=== PATIENT | female | born 1955 | race Hispanic/Latino ===

== ENCOUNTER 2017-05-09 18:24 | Inpatient (IN) | payer BC ==
[~2017-05-09 18:24] MED LIST: ISOVUE-370 76%-LOCM 1 ML ONE
[2017-05-09 19:45] LABS: #Basophils 0.1 thou/uL (0.0-0.2); #Eosinphils 0.1 thou/uL (0.0-0.7); #Lymphocytes 2.1 thou/uL (1.20-3.40); #Monocytes 0.3 thou/uL (0.11-0.59); #Neutrophils 5.3 thou/uL (1.40-6.50); %Basophils 0.8 % (0.0-1.0); %Eosinophils 0.9 % (0.0-10.0); %Lymphocytes 27.1 % (21.0-51.0); Hematocrit 41.1 % (36.0-47.0); Mean Platelet Volume 9.2 fL (7.4-10.4); Red Blood Cell (RBC) Count 4.81 mill/uL (4.20-5.40); White Blood Cell (WBC) Count 7.9 thou/uL (4.8-10.8)
[2017-05-09 19:51] LABS: Prothrombin Time 14.3 SEC (12.0-14.7)
[2017-05-09 19:52] LABS: PTT 41.6 SEC (22.9-36.1)
[2017-05-09] MEDS ORDERED: Labetalol HCl 100 MG/20 ML VIAL ONE (20:01)
[2017-05-09 20:10] LABS: Bilirubin Negative (Negative); Blood, Urine Small (Negative); Glucose, Urine (Dipstick) 100 mg/dL (Negative); Ketone, Urine Negative (Negative); Nitrite Negative (Negative); Protein, Urine (Dipstick) > or equal to 300 mg/dL (Neg-Trace); Urobilinogen 0.2 mg/dL (0.2-1.0)
[2017-05-09 20:11] LABS: ALT (SGPT) 11 U/L (8-55); AST (SGOT) 13 U/L (5-34); Alkaline Phosphatase 118 U/L (40-150); Anion Gap 15 mmol/L (10-20); BUN (Urea Nitrogen) 23 mg/dL (9.8-20.1); Bilirubin, Total 0.3 mg/dL (0.2-1.2); Calc. Creatinine Clearance 0 mL/min (70-130); Calcium 8.5 mg/dL (7.8-10.44); Carbon Dioxide 25 mmol/L (22-29); Chloride 92 mmol/L (98-107); Estimated GFR-MDRD 13; Globulin 4.4 g/dL (2.4-3.5); Magnesium 1.8 mg/dL (1.6-2.6); Protein, Total 7.7 g/dL (6.0-8.3)
[2017-05-09 20:14] LABS: Troponin I 0.035 ng/mL (< 0.028)
[2017-05-09 20:16] LABS: Bacteria/HPF 4+ HPF (None Seen); Hyaline Casts/LPF 4-6 HYALINE CAST LPF (0-3 Hyaline)
--- NOTE | 2017-05-09 20:34 | PDOC.EVN ---
Event Note - Event Note Event Note: [id number] h&p dictated 1. Abdominal pain + R/O Ovarian vein thrombus 2. constipation 3. H/O HTN 4. ESRD 5. H/O DM type 2 PLAN: See orders
[2017-05-09] MEDS ORDERED: cefTRIAXone\\ROCEPHIN 1 GM VIAL ONE (20:47)
[2017-05-09] MEDS ORDERED: cloNIDine HCl 0.1 MG TAB ONE ×2 (20:47→20:48)
[2017-05-09] MEDS ORDERED: Sodium Chloride 0.9% 100 ML ONE (20:48)
[2017-05-09] MEDS ORDERED: Ondansetron HCl/PF 4 MG/2 ML Vial ONE (20:49)
--- NOTE | 2017-05-09 22:07 | CT ---
CTA OF THE CHEST WITH IV CONTRAST UTILIZING PE PROTOCOL CT ABDOMAN AND PELVIS WITH IV CONTRAST: Indication: 61-year-old female presents as an EMS transfer from [facility] with comp laints of a varying vein thrombosis and fluid overload. Patient has been having ongoing abdominal pa in for 15 days with nausea for 3 days. The patient has a history of renal failure and hyponatremia a nd is currently receiving dialysis. Patient has a surgical history of prior and cholecyste ctomy. Comparison: None. FINDINGS: CHEST: No central or segmental pulmonary embolus is present. There is mild cardiomegaly with a moderate sized pericardial effusion. There is prominent of the sona n pulmonary artery, likely indicative of underlying pulmonary artery hypertension. There is a modera te right and small left pleural effusion. There is right basilar atelectasis. There is calcified granuloma within the right lower lobe. There are areas of subsegmental atelectasis within both lower lobes, lingula, right middle lobe and right upper lobe. There is an endovascular stent seen within the left upper extremity. No pathologically enlarged lymph nodes are evident. There are scattered vascular calcifications involving the thoracic and coronary arteries. ABDOMEN\E\PELVIS: No focal hepatic lesion is evident. The gallbladder is surgically absent. The spleen, pancreas, adrenal glands, and kidneys appear within normal limits. There is a small calcific density seen within the region of the right adnexa, nonspecific. The uteru s is somewhat atrophy. The bladder, rectum and perirectal soft tissues are unremarkable. There is a normal appendix in the right lower quadrant. There is a prominent mesentery involving the cecum, lik elidia indicative of a wandering mesentery which is a normal variant. No definite acute osseous abnorma lity is demonstrated. IMPRESSION: 1. No central or segmental pulmonary embolus. 2. Cardiomegaly with bilateral pleural effusions may be indicative of volume overload or mild CHF. 3. Moderate pericardial effusion. 4. No acute abnormality seen within the abdomen or pelvis. POS: [facility]
[2017-05-09] MEDS ORDERED: HYDROcodone/Acetaminophen 5/325 mg Tablet PO PRN (22:12)
[2017-05-09] MEDS ORDERED: Acetaminophen 325 MG TAB PO PRN (22:12)
[2017-05-09] MEDS ORDERED: niCARdipine 20MG In NaCl 20 MG/200 ML BAG ONE (22:17)
[2017-05-09] MEDS ORDERED: Meclizine HCl 25 MG TAB PO PRN (22:18)
[2017-05-09] MEDS ORDERED: traMADol HCl 50 MG TAB PO PRN (22:18)
[2017-05-09] MEDS ORDERED: Dextrose 5% in Water 1,000 ML IV PRN (22:19)
[2017-05-09] MEDS ORDERED: HumaLOG 300 UNITS/3 ML VIAL SC PRN ×2 (22:19)
[2017-05-09] MEDS ORDERED: Dextrose 50% Abboject 50 ML SYRINGE SLOW IVP PRN (22:19)
[2017-05-09 22:54] LABS: Anion Gap 16 mmol/L (10-20); BUN (Urea Nitrogen) 23 mg/dL (9.8-20.1); Calc. Creatinine Clearance 0 mL/min (70-130); Carbon Dioxide 24 mmol/L (22-29); Chloride 91 mmol/L (98-107); Estimated GFR-MDRD 13
[2017-05-10] MEDS ORDERED: niCARdipine HCl 25 MG in Sodium Chloride 0.9% 250 ML 240 ML IVPB SCH (03:15)
[2017-05-10 04:25] LABS: #Eosinphils 0.1 thou/uL (0.0-0.7); #Monocytes 0.4 thou/uL (0.11-0.59); %Basophils 0.6 % (0.0-1.0); %Lymphocytes 30.6 % (21.0-51.0); %Monocytes 6.1 % (0.0-10.0); Hematocrit 36.3 % (36.0-47.0); Mean Platelet Volume 9.8 fL (7.4-10.4); Red Blood Cell (RBC) Count 4.24 mill/uL (4.20-5.40); White Blood Cell (WBC) Count 6.5 thou/uL (4.8-10.8)
[2017-05-10] MEDS: Ondansetron HCl/PF 4 MG/2 ML Vial IVP PRN ×2 (06:26→18:10)
[2017-05-10] MEDS: Levothyroxine Sodium 100 MCG TAB PO SCH (06:36)
--- NOTE | 2017-05-10 07:06 | HP ---
DATE OF ADMISSION: 05/09/2017 CHIEF COMPLAINT: Abdominal pain. HISTORY OF PRESENT ILLNESS: The patient is a 61-year-old female with a past medical history of hypertension, diabetes mellitus type 2, ESRD, hyperlipidemia , hypothyroidism, now came to the ER complaining of nausea and abdominal pain. The patient started having abdominal pain. Abdominal pain is all over the abdomen, cramping kind of pain, moderate in intensity, no aggravating factors, no relieving factors, complaints of nausea also. The patient denies any diarrhea but complains of constipation for the past five days. She complains of some dizziness but denies any palpations, denies syncope. The patient's pain persisted, so she went to outside ER. In the outside ER, the patient was possibly having ovarian thrombus, so the patient was recently transferred here for further evaluation. The patient denies any chest pain at this time. PAST MEDICAL HISTORY: As per HPI. PAST SURGICAL HISTORY: AV fistula cuffed tunnel surgery, cholecystectomy, and C -section. SOCIAL HISTORY: Denies smoking, denies alcohol, and denies any drugs. FAMILY HISTORY: Denies any heart problems. REVIEW OF SYSTEMS: Constitutional: Denies any fever, denies any chills. Eyes: Denies any vision problems. Ears: Denies any hearing loss. Neck: Denies any neck pain. Cardiovascular System: Denies any chest pain, denies any palpitation. Respiratory System: Denies any cough. Denies sputum production. Gastrointestinal: Positive for abdominal pain. Musculoskeletal: Denies any swelling. Cranial Nerve System: Denies syncope. Positive for dizziness. Psychiatric System: Has anxiety. Integumentary: Denies any rash. Genitourinary: On dialysis. PHYSICAL EXAMINATION: VITAL SIGNS: At the time of H and P performed, blood pressure is 170/80, afebrile, respiratory rate 18. GENERAL: The patient appears tired. HEENT: Nose normal. Ears normal. Teeth intact. Tongue is moist. NECK: Supple. No JVD. CARDIOVASCULAR SYSTEM: S1, S2 present. Regular rate and rhythm. No murmurs, no rubs, no gallops. RESPIRATORY SYSTEM: No wheezing, no rhonchi. GENITOURINARY: Denies dysuria. INTEGUMENTARY: Denies any rash. MUSCULOSKELETAL: No joint deformities. Moves all joints. CRANIAL NERVE SYSTEM: Cranial nerves intact. Follows commands. Strength intact, sensory intact. LABORATORY DATA: At the time of H and P performed, sodium 127, potassium 3.3, chloride 93, CO2 of 27, BUN 24, creatinine 3.68. White count 6.7, hemoglobin 12.4, platelet count 218. CT abdomen and pelvis outside done without contrast showed ovarian vein, need to rule out ovarian vein thrombus. ASSESSMENT AND PLAN: The patient is a 61-year-old female. 1. Abdominal pain, rule out ovarian thrombus. Plan is to discuss with ED physician. We will go ahead and do a CT abdomen and pelvis with IV contrast to rule out any thrombus and monitor the patient closely. We will hold off heparin drip until the CT was done. 2. Constipation. Start the patient on MiraLax daily and also on lactulose. We will monitor the patient closely. 3. End-stage renal disease. Plan is to consult Nephrology for hemodialysis in the a.m. because the patient is getting contrast. 3. Dyspnea. Currently on room air satting 97%. CTA was ordered in the ER for rule out pulmonary embolism as the patient was initially hypoxic we will monitor the patient closely. 4. History of hypertension. Continue blood pressure meds. 5. Diabetes mellitus type 2, monitor blood sugars. Will give insulin sliding scale. The case was discussed in detail with the patient. The patient is FULL CODE. MTDD
[2017-05-10] MEDS: SODIUM CHLORIDE IVPB SCH ×2 (08:25→15:45)
[2017-05-10] MEDS: NICARDIPINE HCL IVPB SCH ×2 (08:25→15:45)
[2017-05-10] MEDS: ADMIXTURE FEE IVPB SCH ×2 (08:25→15:45)
[2017-05-10] MEDS: Ferrous Gluconate 324 MG TAB PO SCH (08:26)
[2017-05-10] MEDS: Aspirin 81 mg Enteric Coated Tablet PO SCH (08:26)
[2017-05-10] MEDS: Heparin 5,000 UNITS/ML VIAL SC SCH ×3 (08:26→21:08)
[2017-05-10] MEDS: Famotidine 20 MG TAB PO SCH (08:26)
[2017-05-10] MEDS: Furosemide 80 MG TAB PO SCH ×2 (08:26→08:42)
[2017-05-10] MEDS: Carvedilol 6.25 MG TAB PO SCH ×2 (08:26→21:06)
--- NOTE | 2017-05-10 11:19 | CON ---
DATE OF CONSULTATION: 05/10/2017 HISTORY OF PRESENT ILLNESS: Ms. Vega is a 61-year-old female with end-stage renal dise ase from diabetic nephropathy and admitted for abdominal pain. During the initial evaluation, she w as noted to be volume overloaded as well as having urgent hypertension. She was admitted for furthe r management of this problem. We are now being consulted for emergent hemodialysis. The patient's blood pressure is much improved this morning since she is now on a Cardene drip. Initially blood pr essure at the ER was noted to be having a BP systolic of 220. The patient complaining of severe anxiety. REVIEW OF SYSTEMS: No chest pain, no shortness of breath. Positive for abdominal discomfort. Posi tive for occasional nausea, but no vomiting, no diarrhea, positive constipation, no fever or chills, no diarrhea. Appetite and energy level is decreased. Occasional joint pains. No new skin rash, o ccasional headache, but no diplopia. No sore throat. PAST MEDICAL HISTORY: 1. Hypothyroidism. 2. Hypertension. 3. ESRD. 4. Type 2 diabetes mellitus. 5. History of anxiety. PAST SURGICAL HISTORY: 1. Status post AV fistula placement. 2. Status post cuffed dialysis catheter placement. 3. Status post cholecystectomy. 4. Status post section. 5. Status post AV fistula placement. 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 No IV drug use. Status post blood transfusion. No history of smoking, no al cohol use. ALLERGIES: Unknown. TRAUMA: None. IMMUNIZATIONS: Up to date. HOSPITALIZATIONS: Please see past medical history. FAMILY HISTORY: No family history of ESRD. PHYSICAL EXAMINATION: VITAL SIGNS: Blood pressure 148/54, heart rate 55, respiratory rate 19, pulse ox 94%. GENERAL: Noted to be awake, alert, comfortable, not in overt distress. SKIN: Adequate turgor. HEENT: Slightly pale conjunctivae, anicteric sclerae. NECK: No neck mass, no carotid bruits, no JVD. CHEST: No deformities. LUNGS: Decreased breath sounds. No wheezing, no crackles. HEART: Normal sinus rhythm. No murmur, no gallops or rubs. ABDOMEN: Globular, soft, nontender, no masses. EXTREMITIES: No edema, no deformities. NEUROLOGIC: Awake, oriented to 3 spheres. Moving all extremities. No tremors or asterixis, no christopher obey. Please note this patient is French speaking, does not speak Taiwanese. CT scan of the chest and thorax 05/09/2017 showed no evidence of pulmonary embolism, bilateral pleur al effusions was noted, mild CHF. There is a moderate pericardial effusion. CT scan of the abdomen and pelvis shows no PE and abdomen showed no acute abnormality. LABORATORY: 05/10/2017 - White count 6.5, hemoglobin is 12. Sodium 128, potassium 3.1, chloride 91 , carbon dioxide 24, BUN 23, creatinine 3.59, calcium 8.0. ASSESSMENT AND PLAN: 1. Congestive heart failure - emergent hemodialysis. We will attempt a 3 liter fluid removal with this patient as tolerated. This will be dictated by her blood pressure. 2. Labile/urgent hypertension, much improved with Cardene drip. We will start tapering the Cardene drip. In view of the planned dialysis we will a.m. blood pressure meds. 3. Anxiety. We will give Ativan 0.5 mg tab b.i.d. as needed. Overall, prognosis remains guarded with this patient. Continue current management. I will resume b ack her regular hemodialysis tomorrow on Wednesday, , and Wednesday. Continue supportive care.
--- NOTE | 2017-05-10 14:22 | CON ---
DATE OF CONSULTATION: 05/10/2017 Ms. Vega is a 61-year-old female with end-stage renal disease, followed by Dr. Rizvi. She presented with volume overload, required urgent dialysis today. She has a long history of diabetes. Her son says she has been having abdominal pain prior to admiss ion. He says she has had intermittent abdominal pain for 10 years and has been worked up by a stoma ch specialist without any diagnosis being made. He said she has bowel movements every 4-5 days. She does have a history of anxiety. She also has a history of diabetes and hypertension. She had a systolic blood pressure of 220 when she presented. PAST MEDICAL HISTORY: Remarkable for hypothyroidism, hypertension, diabetes, anxiety vascular acces s procedures, cholecystectomy, . SOCIAL HISTORY: She is a nonsmoker, nondrinker. ALLERGIES: She reports no drug allergies. History is provided via her son. PHYSICAL EXAMINATION: GENERAL: She is in no distress. She is tolerating dialysis. VITAL SIGNS: Blood pressure is 199/80, heart rate 68, respiratory rate 12. HEENT: Pupils are equal. Sclerae is anicteric. NECK: Supple. LUNGS: Remarkable for coarse breath sounds that are equal. HEART: Regular rhythm. ABDOMEN: Soft. CT pulmonary angiogram was done showing a pericardial effusion, right greater than left pleural effu shante and basilar atelectasis as well as calcified granuloma. No pulmonary emboli were seen. IMPRESSION: 1. Hypertensive pulmonary edema leading to the need for urgent dialysis. 2. Abdominal discomfort of unclear etiology. Vascular ischemia is in the differential, although alexis yo has a completely benign abdominal exam. The abdomen CT did not show any intra-abdominal pathology . With her pericardial effusion, echocardiogram should be done, although she clearly does not have escalera ponade physiology. This has already been ordered. I will follow with the other physicians caring for her.
--- NOTE | 2017-05-10 18:06 | PRG ---
DATE OF SERVICE: 05/10/2017 SUBJECTIVE: This patient is doing little better today. No chest pain. Shortness of breath is impr minor. No nausea, no vomiting, no fever. Still on Cardene drip. OBJECTIVE: VITAL SIGNS: The patient's blood pressure is 128/54, heart rate is 55, respirations is 19, pulse ox is 94. GENERAL: Patient is lying in bed, no apparent distress. HEENT: Atraumatic, normocephalic. Pupils equal, round, react to light. Extraocular movements inta ct. Mucous membranes moist. NECK: No JVD. CHEST: Some decreased breath sounds at the bases. No wheezing ,no crackles. HEART: S1, S2 no murmurs or gallops. ABDOMEN: Soft. EXTREMITIES: No cyanosis, clubbing, or edema. Distal pulses present. NEUROLOGICAL: Alert, awake, oriented. No cranial deficits. No sensorimotor deficits. LABORATORY DATA: WBC of 6.5, hemoglobin is 12. Sodium is 128, potassium is 3.1, creatinine is 3.59 . ASSESSMENT AND PLAN: 1. Hypertensive urgency giving rise to volume overload and pulmonary edema, needing urgent hemodial ysis. Patient will consult Dr. Rizvi and do the need for. 2. Labile hypertension, on Cardene drip, we will taper that. 3. Pericardial effusion, we will follow echocardiogram. 4. Hypothyroidism, stable. 5. End-stage renal disease. Follow renal planned diabetes, on insulin sliding scale. 6. Pleural effusions. We will monitor that in this hospital stay. 7. Sequential compression devices for deep venous thrombosis prophylaxis. I will work with the [facility] and further caring for the patient.
[2017-05-10] MEDS ORDERED: Non-Formulary Item 1 EACH (Insulin Glargine,Hum.Rec.Anlog 20 UNIT) SQ SCH (21:00)
[2017-05-10] MEDS ORDERED: cloNIDine HCl 0.1 MG TAB PO SCH (21:00)
[2017-05-10] MEDS: Atorvastatin Calcium 20 MG TAB PO SCH (21:06)
[2017-05-10] MEDS: cefTRIAXone\\ROCEPHIN 1 GM in Sodium Chloride 0.9% 100 ML IVPB SCH (21:07)
[2017-05-10] MEDS: Insulin Detemir 100 UNITS/ML 20 UNITS in Pre-Filled Syringe 1 EACH SC SCH (21:08)
[2017-05-11] MEDS: SODIUM CHLORIDE IVPB SCH (02:09)
[2017-05-11] MEDS: ADMIXTURE FEE IVPB SCH (02:09)
[2017-05-11] MEDS: NICARDIPINE HCL IVPB SCH (02:09)
[2017-05-11] MEDS: Ondansetron HCl/PF 4 MG/2 ML Vial IVP PRN ×2 (04:07→19:44)
[2017-05-11 04:30] VITALS: BMI 34.9
[2017-05-11 06:02] LABS: #Basophils 0.1 thou/uL (0.0-0.2); #Eosinphils 0.2 thou/uL (0.0-0.7); #Lymphocytes 1.9 thou/uL (1.20-3.40); #Monocytes 0.5 thou/uL (0.11-0.59); #Neutrophils 4.7 thou/uL (1.40-6.50); %Basophils 1.1 % (0.0-1.0); %Eosinophils 2.3 % (0.0-10.0); %Lymphocytes 25.5 % (21.0-51.0); %Monocytes 7.1 % (0.0-10.0); Hematocrit 40.6 % (36.0-47.0); Mean Platelet Volume 9.5 fL (7.4-10.4); Red Blood Cell (RBC) Count 4.68 mill/uL (4.20-5.40); White Blood Cell (WBC) Count 7.3 thou/uL (4.8-10.8)
[2017-05-11 06:24] LABS: Anion Gap 17 mmol/L (10-20); BUN (Urea Nitrogen) 11 mg/dL (9.8-20.1); BUN/Creatinine Ratio 3.45; Calc. Creatinine Clearance 22 mL/min (70-130); Calcium 8.4 mg/dL (7.8-10.44); Carbon Dioxide 23 mmol/L (22-29); Chloride 94 mmol/L (98-107); Estimated GFR-MDRD 15; Phosphorus 3.6 mg/dL (2.3-4.7)
[2017-05-11] MEDS: Levothyroxine Sodium 100 MCG TAB PO SCH (06:38)
--- NOTE | 2017-05-11 08:54 | PRG ---
DATE OF SERVICE: 05/11/2017 SUBJECTIVE: Ms. Vega is a 61-year-old female with ESRD being followed by the [facility] for her maintenance hemodialysis. She came in with some shortness of breath and abdominal pain . A CT of the chest showed moderate sized pericardial effusion. We are currently maxing out fluid removal. I am currently at the bedside supervising her dialysis. [facility] to max out fluid removal and to improve the pericardial effu shante. A cardiac echo is now being scheduled with this patient. She voices no new complaints. Her shortness of breath is much improved. PHYSICAL EXAMINATION: VITAL SIGNS: Blood pressure is 140/51, heart rate 44, respiratory rate 115, pulse ox 93%. GENERAL: Awake, alert, comfortable, not in distress. SKIN: Adequate turgor. HEENT: Pinkish conjunctivae, anicteric sclerae. NECK: No neck mass, no carotid bruits, no JVD. CHEST: No deformities. LUNGS: Clear breath sounds. No wheezing, no crackles. HEART: Normal sinus rhythm. No murmur, no gallops or rubs. ABDOMEN: Globular, soft, nontender, no masses. EXTREMITIES: No edema. MEDICATIONS: 05/11/2017 - Reviewed. LABORATORY: 05/11/2017 - White count 7.3, hemoglobin 12.6. Sodium 131, potassium 3.3, chloride 94, carbon dioxide 23, BUN 11, creatinine 3.19, glucose 120, calcium 8.4, phosphorus 3.6, albumin 3.0. ASSESSMENT AND PLAN: 1. End-stage renal disease stable, doing daily dialysis due to the moderate sized pericardial effus ion. I have discussed the case with the dialysis nurse. We will again schedule her for another huang lysis treatment today. Attempting 3 liters of fluid removal today. We removed 4 liters yesterday. 2. Labile hypertension, still on Cardene drip. Consider adding p.o. blood pressure medication with this patient. We will start her on losartan 50 mg tab daily. 3. Anemia. No indication for any Epogen treatment. 4. Pericardial effusion, maxing out fluid removal with dialysis with cardiac echo scheduled. 5. Abdominal pain, consult GI.
[2017-05-11] MEDS: Heparin 5,000 UNITS/ML VIAL SC SCH ×3 (11:03→21:20)
[2017-05-11] MEDS: Famotidine 20 MG TAB PO SCH (11:03)
--- NOTE | 2017-05-11 11:40 | PDOC.PN ---
- Subjective Encounter Start Date: 05/11/17 Encounter Start Time: 11:39 c/o nausea, abd pain no f/c no cp - Objective MAR Reviewed: Yes Vital Signs & Weight: Vital Signs (12 hours) Temp 05/11/17 04:00 98.7 F 05/11/17 00:00 98.2 F Weight Admit Weight 175 lb Weight 166 lb 3.657 oz Most Recent Monitor Data Heart Rate from ECG 43 NIBP 140/51 NIBP BP-Mean 103 Respiration from ECG 15 SpO2 93 I&O: 05/10/17 05/11/17 05/12/17 06:59 06:59 06:59 Intake Total 480 1044.5 Output Total 300 120 Balance 180 924.5 Result Diagrams: 05/11/17 03:51 05/11/17 03:51 Additional Labs: Accuchecks 05/11/17 05/11/17 05/11/17 09:55 09:29 06:37 POC Glucose 95 66 L 122 H 05/11/17 05/11/17 05/10/17 03:29 02:56 21:10 POC Glucose 111 H 52 L* 163 H 05/10/17 05/10/17 17:58 13:07 POC Glucose 134 H 97 Phys Exam - Physical Examination Constitutional: NAD HEENT: PERRLA Neck: no JVD decreased bs at bases Cardiovascular: no significant murmur Gastrointestinal: non-tender Musculoskeletal: pulses present Neurological: moves all 4 limbs Psychiatric: A&O x 3 Dx/Plan (1) Hypertensive emergency Code(s): I16.1 - HYPERTENSIVE EMERGENCY Status: Acute (2) Pulmonary edema Code(s): J81.1 - CHRONIC PULMONARY EDEMA Status: Acute (3) Abdominal pain Code(s): R10.9 - UNSPECIFIED ABDOMINAL PAIN Status: Acute (4) ESRD (end stage renal disease) Code(s): N18.6 - END STAGE RENAL DISEASE Status: Acute (5) Diabetes mellitus Code(s): E11.9 - TYPE 2 DIABETES MELLITUS WITHOUT COMPLICATIONS Status: Acute (6) Pericardial effusion Code(s): I31.3 - PERICARDIAL EFFUSION (NONINFLAMMATORY) Status: Acute (7) Pleural effusion Code(s): J90 - PLEURAL EFFUSION, NOT ELSEWHERE CLASSIFIED Status: Acute - Plan * . cont shelton sam got hd today gi consult for abd pain f/u dr felisha shrestha
[2017-05-11] MEDS ORDERED: Carvedilol 25 MG TAB PO SCH ×2 (12:00→17:00)
[2017-05-11] MEDS ORDERED: cloNIDine HCl 0.1 MG TAB PO SCH ×2 (12:00→15:00)
[2017-05-11] MEDS: Aspirin 81 mg Enteric Coated Tablet PO SCH (12:05)
[2017-05-11] MEDS: Ferrous Gluconate 324 MG TAB PO SCH (12:06)
[2017-05-11] MEDS: cloNIDine HCl 0.1 MG TAB PO SCH ×2 (15:47→21:19)
[2017-05-11] MEDS: Carvedilol 25 MG TAB PO SCH (15:48)
--- NOTE | 2017-05-11 19:25 | PRG ---
DATE OF SERVICE: 05/11/2017 SUBJECTIVE: Ms. Vega continues to complain of abdominal discomfort. She also has had some naus ea. OBJECTIVE: VITAL SIGNS: Blood pressure 160/53, heart rate in the 50s, respiratory rate in the teens. Adjusted her hypertension medications today and her blood pressure this afternoon is better controlled. She was on a Cardene drip still this morning. LUNGS: Clear. HEART: Regular rhythm. ABDOMEN: Soft. IMPRESSION: 1. Hypertensive pulmonary edema. 2. Diabetes. 3. Abdominal discomfort. PLAN: She tells me she has had extensive workup after 10 years of discomfort, but I would still won bony about mesenteric vascular disease with diabetic gastroparesis, Gastroenterology has been consult ed, this is her primary complaint come in to the hospital. Her hypertensive pulmonary edema appears to have resolved clinically. She did have a pericardial effusion. An echocardiogram was ordered but I do not see any results yet . She clinically is not tamponading.
[2017-05-11] MEDS: cefTRIAXone\\ROCEPHIN 1 GM in Sodium Chloride 0.9% 100 ML IVPB SCH (21:17)
[2017-05-11] MEDS: Gabapentin 300 MG CAP PO SCH (21:20)
[2017-05-11] MEDS: Insulin Detemir 100 UNITS/ML 20 UNITS in Pre-Filled Syringe 1 EACH SC SCH (21:20)
[2017-05-11] MEDS: Atorvastatin Calcium 20 MG TAB PO SCH (21:20)
[2017-05-11] MEDS: Polyethylene Glycol 3350 17 GM Packet PO SCH (21:21)
--- NOTE | 2017-05-12 00:30 | CON ---
DATE OF CONSULTATION: 05/11/2017 REASON FOR CONSULTATION: Epigastric pain and nausea. HISTORY OF PRESENT ILLNESS: Ms. Vega is a 61-year-old female with past medical history of hyper tension, diabetes, end-stage renal disease, came to the emergency room complaining of nausea and abd ominal pain. She had been constipated for about 8 days now. The patient's daughter states her pain has come and gone in the past over about past 5 years. She complains of epigastric pain and abdomi nal pain in the upper abdomen in the epigastrium. Apparently, she went to an outside emergency room first, and there, she was found to have an ovarian vein thrombosis and was transferred here. She h ad a normal CBC, normal comp metabolic profile except for an albumin of 3. I do not see her lipase was obtained, possibly that was done in the outside facility. She had a CAT scan of the abdomen and pelvis here on 05/09/2017, showed cardiomegaly, bilateral effusions, moderate pericardial effusion, no pulmonary embolus. The abdomen showed quite a bit of stool in the colon. PAST MEDICAL HISTORY: Notable for type 2 diabetes, end-stage renal disease on dialysis, hypothyroid ism, hypertension, history of anxiety. PAST SURGICAL HISTORY: AV fistula placement, cuffed dialysis placement, previous cholecystectomy, c esarean section. SOCIAL HISTORY: The patient lives in [place], [place]. She is , several children. She does n ot speak Irish, her daughter is here translating for her. She denies any IV drug use, alcohol or tobacco use. ALLERGIES: Unknown. TRAUMA: None. HOSPITAL COURSE: So far she has been seen by Nephrology and ICU. She is on a Cardene drip for hype rtensive urgency, fluid overload. She was dialyzed, not improved, now her stomach pain is better, s he is still somewhat nauseated. PRESENT MEDICATIONS: Tylenol, Norvasc, Lipitor, Rocephin, iron, gabapentin, glucagon, heparin. She is on Cardene drip, which she is off now. Atorvastatin, aspirin 81 mg a day, Pepcid, losartan, Syn throid, lactulose and MiraLax. PHYSICAL EXAMINATION: VITAL SIGNS: Blood pressure 160/53. LUNGS: Clear. CARDIAC: Heart regular, without clicks or murmurs. ABDOMEN: Soft, nontender, without palpable hepatosplenomegaly. There is no rebound. There is no g uarding. There is no shifting dullness or fluid wave. EXTREMITIES: No clubbing, cyanosis or edema. ASSESSMENT AND PLAN: Nausea and vomiting. This may be related to constipation. It may be related to her hypertensive crisis and fluid overload. With symptoms on and off for several years and a vag ue history, we will proceed with EGD tomorrow.
[2017-05-12] MEDS ORDERED: Dextrose 5 % And 0.9 % NaCl 1,000 ML IV SCH (03:30)
[2017-05-12 05:06] LABS: #Basophils 0.1 thou/uL (0.0-0.2); #Eosinphils 0.2 thou/uL (0.0-0.7); #Lymphocytes 2.4 thou/uL (1.20-3.40); #Monocytes 0.5 thou/uL (0.11-0.59); #Neutrophils 4.1 thou/uL (1.40-6.50); %Eosinophils 2.9 % (0.0-10.0); %Lymphocytes 32.5 % (21.0-51.0); %Monocytes 7.1 % (0.0-10.0); Hematocrit 39.6 % (36.0-47.0); Mean Platelet Volume 9.4 fL (7.4-10.4); White Blood Cell (WBC) Count 7.2 thou/uL (4.8-10.8)
[2017-05-12 05:29] LABS: Anion Gap 15 mmol/L (10-20); BUN (Urea Nitrogen) 7 mg/dL (9.8-20.1); BUN/Creatinine Ratio 2.46; Calc. Creatinine Clearance 25 mL/min (70-130); Calcium 8.4 mg/dL (7.8-10.44); Carbon Dioxide 23 mmol/L (22-29); Chloride 96 mmol/L (98-107); Estimated GFR-MDRD 17; Phosphorus 3.2 mg/dL (2.3-4.7)
[2017-05-12] MEDS: Levothyroxine Sodium 100 MCG TAB PO SCH (06:37)
[2017-05-12] MEDS: cloNIDine HCl 0.1 MG TAB PO SCH ×3 (08:46→20:17)
--- NOTE | 2017-05-12 09:06 | PRG ---
DATE OF SERVICE: 05/12/2017 RENAL MEDICINE SUBJECTIVE: Ms. Vega is undergoing hemodialysis today. She is receiving daily dialysis due to her moderate sized pericardial effusion. I am at the bedside and supervising her dialysis. She see ms to be tolerating the dialysis. PHYSICAL EXAMINATION: VITAL SIGNS: Blood pressure 170/70, heart rate 70. GENERAL: Noted to be awake, supine, comfortable, and not in distress. SKIN: Adequate turgor. HEENT: Pinkish conjunctivae, anicteric sclerae. LUNGS: No neck mass. No carotid bruits, no JVD. CHEST: No deformities. LUNGS: Clear breath sounds. No wheezing, no crackles. HEART: Normal sinus rhythm. No murmur, no gallops or rubs. ABDOMEN: Globular, soft, nontender, no masses. Positive for bowel sounds. EXTREMITIES: No edema, no deformities. MEDICATIONS: Medications of 05/12/2017 was reviewed. LABORATORY DATA: Laboratories of 05/12/2017; white count 7.2, hemoglobin 12.8. Sodium 130, potassi um 3.7, chloride 96, carbon dioxide 23, BUN 7, creatinine 2.84, glucose 66, calcium 8.4, phosphorus 3.2, and albumin 2.9. ASSESSMENT AND PLAN: 1. End-stage renal disease, stable, receiving daily dialysis due to the moderate size pericardial e ffusion. Attempting to max out fluid removal as tolerated by the patient. We will resume her back on her Wednesday, , and Wednesday dialysis in a.m. 2. Labile hypertension - continue current blood pressure meds. Blood pressure medications have bee n adjusted. Currently, patient started back on losartan at 100 mg tablet once a day. She is also c urrently on carvedilol and amlodipine. We will not resume the minoxidil due to the pericardial effu shante. 3. Chronic abdominal pain - GI has been consulted. There is a planned upper GI endoscopy with this patient. Overall, agree with current management.
--- NOTE | 2017-05-12 12:05 | PDOC.PN ---
- Subjective Encounter Start Date: 05/12/17 Encounter Start Time: 12:03 still c/o abd pain getting hd today no f/c - Objective MAR Reviewed: Yes Vital Signs & Weight: Vital Signs (12 hours) Temp Pulse Resp BP Pulse Ox 05/12/17 08:48 51 L 173/61 H 05/12/17 08:46 180/59 H 05/12/17 08:00 98.9 F 51 L 18 96 05/12/17 07:00 98.9 F 05/12/17 04:00 98.8 F Weight Admit Weight 175 lb Weight 166 lb 3.657 oz Most Recent Monitor Data Heart Rate from ECG 48 NIBP 139/53 NIBP BP-Mean 90 Respiration from ECG 17 SpO2 98 I&O: 05/11/17 05/12/17 05/13/17 06:59 06:59 06:59 Intake Total 1044.5 630 0 Output Total 120 40 0 Balance 924.5 590 0 Result Diagrams: 05/12/17 04:08 05/12/17 04:08 Additional Labs: Accuchecks 05/12/17 05/12/17 05/11/17 06:12 03:06 20:50 POC Glucose 81 66 L 92 05/11/17 05/11/17 05/11/17 16:25 15:49 12:09 POC Glucose 77 67 L 86 Phys Exam - Physical Examination Constitutional: NAD HEENT: PERRLA Neck: no JVD Respiratory: no wheezing Cardiovascular: no significant murmur Gastrointestinal: soft, positive bowel sounds Musculoskeletal: pulses present Neurological: moves all 4 limbs Psychiatric: A&O x 3 Dx/Plan (1) Hypertensive emergency Code(s): I16.1 - HYPERTENSIVE EMERGENCY Status: Acute (2) Pulmonary edema Code(s): J81.1 - CHRONIC PULMONARY EDEMA Status: Acute (3) Abdominal pain Code(s): R10.9 - UNSPECIFIED ABDOMINAL PAIN Status: Acute (4) ESRD (end stage renal disease) Code(s): N18.6 - END STAGE RENAL DISEASE Status: Acute (5) Diabetes mellitus Code(s): E11.9 - TYPE 2 DIABETES MELLITUS WITHOUT COMPLICATIONS Status: Acute (6) Pericardial effusion Code(s): I31.3 - PERICARDIAL EFFUSION (NONINFLAMMATORY) Status: Acute (7) Pleural effusion Code(s): J90 - PLEURAL EFFUSION, NOT ELSEWHERE CLASSIFIED Status: Acute (8) Nausea & vomiting Code(s): R11.2 - NAUSEA WITH VOMITING, UNSPECIFIED Status: Acute - Plan * . cont current mx f/u renal and gi plan
--- NOTE | 2017-05-12 13:27 | PRG ---
DATE OF SERVICE: 05/12/2017 SUBJECTIVE: Ms. Vega did well overnight. Her abdomen is bothering her as much. She is schedul ed for endoscopy today. OBJECTIVE: VITAL SIGNS: Her blood pressure 139/53, heart rate is 48, respiratory rate in the teens. LUNGS: Clear anteriorly. HEART: Regular rhythm. ABDOMEN: Soft. LABORATORY DATA: White count 7.2, hemoglobin 12.8, platelets 205,000. Sodium 130, potassium 3.7, chloride 96, bicarb 23, BUN 7, creatinine 2.8. IMPRESSION: 1. Volume overload, tolerating daily dialysis. 2. Abdominal discomfort. She is scheduled for endoscopy. She says she has had this for 10 years. She does have a history of chronic constipation. I have asked her son to be sure she is on MiraLax every day when she leaves. Gastroenterology's helping us with this. She is a candidate to move out of the Critical Care Unit to the medical bed.
[2017-05-12] MEDS ORDERED: Propofol 200 MG/20 ML VIAL ONE (16:11)
[2017-05-12] MEDS ORDERED: Ondansetron HCl/PF 4 MG/2 ML Vial IVP PRN (16:29)
[2017-05-12] MEDS ORDERED: Morphine Sulfate 2 MG/ML SYRINGE SLOW IVP PRN (16:29)
[2017-05-12] MEDS ORDERED: Promethazine HCl 25 MG/ML VIAL SLOW IVP PRN (16:29)
--- NOTE | 2017-05-12 17:06 | OP ---
DATE OF PROCEDURE: 05/12/2017 GI ENDOSCOPY NOTE SURGEON: Osito Buck M.D. GIRL FRIDAY SURGEON: None. PROCEDURE: Esophagogastroduodenoscopy with biopsies. INDICATION: Chronic epigastric pain. MEDICATIONS: See anesthesia record. FINDINGS: After discussion of the risks, benefits and alternatives of the procedure, informed conse nt was obtained and witnessed. Pre-endoscopic cardiopulmonary examination was satisfactory. Timeou t was performed before sedation was achieved. Sedation was achieved with anesthesia assistance [facility]. A Pentax adult upper endoscope was placed into the oropharynx and passed through the cricopharyngeus under direct visualization. The esophageal mucosa appeared normal throughout w ith an irregular, but normal-appearing Z-line at 37 cm from the incisors. The endoscope was then ad vanced into the stomach. Forward and retroflexed views of the entire gastric mucosa were obtained. In the gastric body, there is a patchy area of friability and erythema with no erosions, no ulcerat ions noted. Biopsies were obtained from the gastric antrum and body to rule out H. pylori infection . The endoscope was then advanced into the duodenum through a normal appearing pylorus and into the first and second portions of the duodenum which appeared normal. The upper endoscope was then comp letely withdrawn and the patient allowed to recover. The patient tolerated the procedure well. The re were no immediate post-procedure complications. IMPRESSION: 1. Nonerosive gastritis, gastric body. Biopsies obtained to rule out Helicobacter pylori. 2. Otherwise, normal esophagogastroduodenoscopy. RECOMMENDATIONS: 1. Daily PPI. 2. Follow up results of the gastric biopsies. 3. Advance diet. Please call back with questions or concerns.
[2017-05-12] MEDS: Carvedilol 25 MG TAB PO SCH ×2 (17:41→17:44)
[2017-05-12] MEDS: Aspirin 81 mg Enteric Coated Tablet PO SCH (17:41)
[2017-05-12] MEDS: Heparin 5,000 UNITS/ML VIAL SC SCH ×2 (17:42→20:17)
[2017-05-12] MEDS: Famotidine 20 MG TAB PO SCH (17:42)
[2017-05-12] MEDS: Losartan Potassium 25 MG TAB PO SCH (17:42)
[2017-05-12] MEDS: Fish Oil 1,000 MG CAP PO SCH (17:42)
[2017-05-12] MEDS: Polyethylene Glycol 3350 17 GM Packet PO SCH ×2 (17:43→20:17)
[2017-05-12] MEDS: Gabapentin 300 MG CAP PO SCH (20:16)
[2017-05-12] MEDS: cefTRIAXone\\ROCEPHIN 1 GM in Sodium Chloride 0.9% 100 ML IVPB SCH (20:17)
[2017-05-12] MEDS: Atorvastatin Calcium 20 MG TAB PO SCH (20:17)
[2017-05-13] MEDS: Levothyroxine Sodium 100 MCG TAB PO SCH (04:41)
--- NOTE | 2017-05-13 08:37 | PRG ---
DATE OF SERVICE: 05/13/2017 RENAL MEDICINE SUBJECTIVE: Ms. Bruce is a 61-year-old female, being followed by the [facility] for her ESRD. Currently, she is on hemodialysis. I am at the bedside supervising her dialysis. Please note she had an incidental finding of moderate size pericardial effusion. For that reason, she has been undergoing daily dialysis. Again, fluid removal only as tolerated. The patient voices no new complaints. Denies any chest pain or shortness of breath. PHYSICAL EXAMINATION: VITAL SIGNS: Blood pressure 170/76, heart rate 52, respiratory rate 20, temperature 98.6, and pulse ox 97%. GENERAL: Noted to be awake, supine, comfortable, not in distress. SKIN: Adequate turgor. HEENT: Pinkish conjunctivae, anicteric sclerae. NECK: No neck mass, no carotid bruits, no JVD. CHEST: No deformities. LUNGS: Clear breath sounds. No wheezing and no crackles heard. HEART: Normal sinus rhythm. No murmur, no gallops or rubs. ABDOMEN: Globular, soft, nontender. EXTREMITIES: No edema, no deformities. MEDICATIONS: Medications of 05/13/2017 was reviewed. LABORATORY DATA: Laboratories of 05/12/2017; sodium 130, potassium 3.7, chloride 96, carbon dioxide 23, BUN 7, creatinine 2.84, glucose 66, calcium 8.4, phosphorus 3.2. White count 7.2, hemoglobin 12.8. ASSESSMENT AND PLAN: 1. End-stage renal disease, stable. Tolerating current hemodialysis. Daily dialysis was done to m ax out fluid removal, so we can improve the pericardial effusion which was found on CT scan. Please note that the patient underwent a cardiac echo on 05/12/2017. Findings of the echo showed ejection fraction of 60%-65%. 2. Abdominal pain. The patient has been evaluated by GI. She underwent an upper GI endoscopy with Dr. Osito Buck. The findings showed nonerosive gastritis on the gastric body. Biopsies were done. Otherwise, the upper GI endoscopy was said to be normal. 3. Hypertension. Continue current blood pressure medications. 4. Recheck basic metabolic panel and CBC in a.m.
[2017-05-13] MEDS: Fish Oil 1,000 MG CAP PO SCH (11:24)
[2017-05-13] MEDS: cloNIDine HCl 0.1 MG TAB PO SCH ×3 (11:24→20:19)
[2017-05-13] MEDS: Aspirin 81 mg Enteric Coated Tablet PO SCH (11:24)
[2017-05-13] MEDS: Losartan Potassium 25 MG TAB PO SCH (11:24)
[2017-05-13] MEDS: Famotidine 20 MG TAB PO SCH (11:24)
[2017-05-13] MEDS: Heparin 5,000 UNITS/ML VIAL SC SCH ×3 (11:24→20:19)
[2017-05-13] MEDS: Carvedilol 25 MG TAB PO SCH ×2 (11:25→16:54)
[2017-05-13] MEDS: Polyethylene Glycol 3350 17 GM Packet PO SCH ×2 (11:31→20:20)
--- NOTE | 2017-05-13 15:56 | PDOC.PN ---
- Subjective Encounter Start Date: 05/13/17 Encounter Start Time: 11:20 Subjective: c/o chest pain post HD session today -: no palp or sob - Objective MAR Reviewed: Yes Vital Signs & Weight: Vital Signs (12 hours) Temp Pulse Resp BP Pulse Ox 05/13/17 14:53 170/76 H 05/13/17 11:25 52 L 05/13/17 11:24 179/71 H 05/13/17 08:00 98.6 F 52 L 20 97 Weight Admit Weight 175 lb Weight 166 lb 3.657 oz Most Recent Monitor Data Heart Rate from ECG 49 NIBP 162/51 NIBP BP-Mean 116 Respiration from ECG 17 SpO2 97 I&O: 05/12/17 05/13/17 05/14/17 06:59 06:59 06:59 Intake Total 630 1332 240 Output Total 40 30 Balance 590 1302 240 Result Diagrams: 05/12/17 04:08 05/12/17 04:08 Additional Labs: Accuchecks 05/13/17 05/13/17 05/13/17 11:56 04:34 00:42 POC Glucose 119 H 142 H 101 05/12/17 19:41 POC Glucose 248 H Phys Exam - Physical Examination HEENT: PERRLA, moist MMs Neck: no JVD, supple Respiratory: no wheezing, no rales Cardiovascular: RRR, no significant murmur Gastrointestinal: soft, non-tender, positive bowel sounds Musculoskeletal: no edema, pulses present Neurological: non-focal, moves all 4 limbs Psychiatric: A&O x 3 Dx/Plan (1) Chest pain Code(s): R07.9 - CHEST PAIN, UNSPECIFIED Status: Acute Qualifiers: Chest pain type: unspecified Qualified Code(s): R07.9 - Chest pain, unspecified (2) PUD (peptic ulcer disease) Code(s): K27.9 - PEPTIC ULC, SITE UNSP, UNSP AC OR CHR, W/O HEMOR OR PERF Status: Chronic (3) Diabetes mellitus Code(s): E11.9 - TYPE 2 DIABETES MELLITUS WITHOUT COMPLICATIONS Status: Chronic Qualifiers: Diabetes mellitus type: type 2 Diabetes mellitus complication status: with kidney complications Diabetes mellitus complication detail: with chronic kidney disease Diabetes mellitus long term care administrator insulin use: with long term care administrator use Chronic kidney disease stage: on chronic dialysis Qualified Code(s): E11.22 - Type 2 diabetes mellitus with diabetic chronic kidney disease; N18.6 - End stage renal disease; Z79.4 - long term care administrator (current) use of insulin; Z99.2 - Dependence on renal dialysis (4) ESRD (end stage renal disease) Code(s): N18.6 - END STAGE RENAL DISEASE Status: Chronic (5) Hypertensive emergency Code(s): I16.1 - HYPERTENSIVE EMERGENCY Status: Resolved (6) Hypothyroidism Code(s): E03.9 - HYPOTHYROIDISM, UNSPECIFIED Status: Chronic Qualifiers: Hypothyroidism type: unspecified Qualified Code(s): E03.9 - Hypothyroidism , unspecified - Plan she does not recall if she had a stress test -: will order nuclear stress test, is on asp, lipitor and coreg -: echo shows good ef with no wall motion abnormalities -: d/w family and pt at bedside -: will get old records from [facility] in [place] * . Review of Systems - Medications/Allergies Allergies/Adverse Reactions: Allergies Allergy/AdvReac Type Severity Reaction Status Date / Time NSAIDS (Non-Steroidal Allergy Verified 03/03/16 12:16 Anti-Inflamma Medications: Current Medications Acetaminophen (Tylenol) 650 mg PO Q4H PRN PRN Reason: Headache/Fever or Pain Hydrocodone Bitart/Acetaminophen ([place] 5/325) 1 tab PO Q4H PRN PRN Reason: Moderate Pain (4-6) Last Admin: 05/12/17 08:47 Dose: 1 tab Amlodipine Besylate (Norvasc) 10 mg PO DAILY [facility] Last Admin: 05/13/17 11:25 Dose: 10 mg Aspirin (Ecotrin) 81 mg PO DAILY [facility] Last Admin: 05/13/17 11:24 Dose: 81 mg Atorvastatin Calcium (Lipitor) 20 mg PO HS [facility] Last Admin: 05/12/17 20:17 Dose: 20 mg Carvedilol (Coreg) 25 mg PO BID-WM [facility] Last Admin: 05/13/17 11:25 Dose: 25 mg Clonidine HCl (Catapres) 0.1 mg PO TID [facility] Last Admin: 05/13/17 14:53 Dose: 0.1 mg Dextrose/Water (Dextrose 50%) 25 gm SLOW IVP PRN PRN PRN Reason: Hypoglycemia Famotidine (Pepcid) 20 mg PO DAILY [facility] Last Admin: 05/13/17 11:24 Dose: 20 mg Fish Oil (Fish Oil) 1,000 mg PO DAILY [facility] Last Admin: 05/13/17 11:24 Dose: 1,000 mg Gabapentin (Neurontin) 600 mg PO 2100 [facility] Last Admin: 05/12/17 20:16 Dose: 600 mg Glucagon (Glucagon) 1 mg IM PRN PRN PRN Reason: Hypoglycemia Heparin Sodium (Porcine) (Heparin) 5,000 units SC TID [facility] Last Admin: 05/13/17 14:53 Dose: 5,000 units Dextrose/Water (D5w) 1,000 mls @ 0 mls/hr IV .Q0M PRN; As Directed PRN Reason: Hypoglycemia Ceftriaxone Sodium 1 gm/ (Sodium Chloride) 100 mls @ 200 mls/hr IVPB Q24HR [facility] Last Admin: 05/12/17 20:17 Dose: 100 mls Nicardipine HCl 50 mg/Miscellaneous Medication 1 each/ Sodium Chloride 250 mls @ 0 mls/hr IVPB INF [facility]; Titrate PRN Reason: Protocol Last Admin: 05/11/17 02:09 Dose: 250 mls Insulin Human Lispro (Humalog) 0 units SC .MODERATE SLIDING SC PRN PRN Reason: Moderate Correctional Scale Insulin Human Lispro (Humalog) 0 units SC .BEDTIME SLIDING SC PRN PRN Reason: Bedtime Correctional Scale Last Admin: 05/12/17 20:24 Dose: 2 units Levothyroxine Sodium (Synthroid) 200 mcg PO 0600 [facility] Last Admin: 05/13/17 04:41 Dose: 200 mcg Losartan Potassium (Cozaar) 100 mg PO DAILY [facility] Last Admin: 05/13/17 11:24 Dose: 100 mg Meclizine HCl (Antivert) 25 mg PO DAILYPRN PRN PRN Reason: Nausea Ondansetron HCl (Zofran) 4 mg IVP Q6H PRN PRN Reason: Nausea/Vomiting Last Admin: 05/11/17 19:44 Dose: 4 mg Pantoprazole Sodium (Protonix) 40 mg PO DAILYPRN PRN PRN Reason: reflux Polyethylene Glycol (Miralax) 17 gm PO BID [facility] Last Admin: 05/13/17 11:31 Dose: 17 gm Promethazine HCl (Phenergan) 12.5 mg PO Q6H PRN PRN Reason: Nausea Sodium Chloride (Flush - Normal Saline) 10 ml IVF Q12HR [facility] Last Admin: 05/13/17 11:31 Dose: 10 ml Sodium Chloride (Flush - Normal Saline) 10 ml IVF PRN PRN PRN Reason: Saline Flush Tramadol HCl (Ultram) 50 mg PO QIDPRN PRN PRN Reason: Pain Last Admin: 05/10/17 15:42 Dose: 50 mg
--- NOTE | 2017-05-13 17:23 | PRG ---
DATE OF SERVICE: 05/13/2017 SUBJECTIVE: Ms. Vega is without complaints. She does state, however, she had some chest pain o n dialysis and that was in the epigastrium. She has no nausea or vomiting. PHYSICAL EXAMINATION: VITAL SIGNS: Heart rate is 52, blood pressure is 139/71, temperature 97. LUNGS: Clear. HEART: Regular. ABDOMEN: Nontender. ASSESSMENT AND PLAN: Epigastric pain of unclear etiology. Normal CMP yesterday. CBC except for BU N and creatinine of 7 and 2.8. I have discussed with patient's hospitalist. She is going to have e valuation for chest pain with stress test. The patient is unsure if she has had that before. At th is time, I see no GI tract etiology of upper GI symptoms, vague nausea on presentation, it may be re lated to her heart failure or hypertension related to fluid overload. Esophagogastroduodenoscopy is normal and CT scan of the upper abdomen was negative. We will follow up gastric biopsies.
[2017-05-13] MEDS: Carvedilol 6.25 MG TAB PO SCH (19:02)
[2017-05-13] MEDS: Atorvastatin Calcium 20 MG TAB PO SCH (20:19)
[2017-05-13] MEDS: cefTRIAXone\\ROCEPHIN 1 GM in Sodium Chloride 0.9% 100 ML IVPB SCH (20:19)
[2017-05-13] MEDS: Gabapentin 300 MG CAP PO SCH (20:19)
[2017-05-14 04:37] LABS: #Basophils 0.1 thou/uL (0.0-0.2); #Eosinphils 0.3 thou/uL (0.0-0.7); #Lymphocytes 2.6 thou/uL (1.20-3.40); #Monocytes 0.6 thou/uL (0.11-0.59); #Neutrophils 5.4 thou/uL (1.40-6.50); %Basophils 0.9 % (0.0-1.0); %Eosinophils 2.8 % (0.0-10.0); %Lymphocytes 29.1 % (21.0-51.0); %Monocytes 7.2 % (0.0-10.0); Hematocrit 43.6 % (36.0-47.0); Mean Platelet Volume 9.3 fL (7.4-10.4); Red Blood Cell (RBC) Count 4.82 mill/uL (4.20-5.40); White Blood Cell (WBC) Count 8.9 thou/uL (4.8-10.8)
[2017-05-14 05:05] LABS: Anion Gap 14 mmol/L (10-20); BUN (Urea Nitrogen) 8 mg/dL (9.8-20.1); Calc. Creatinine Clearance 23 mL/min (70-130); Calcium 8.7 mg/dL (7.8-10.44); Carbon Dioxide 24 mmol/L (22-29); Chloride 99 mmol/L (98-107); Cholesterol 142 mg/dl (< 200 Desired); Estimated GFR-MDRD 15; LDL Cholesterol, Calculated 70 mg/dL
[2017-05-14] MEDS: Levothyroxine Sodium 100 MCG TAB PO SCH (05:21)
[2017-05-14 08:53] VITALS: BP 163/83; TEMP 98.6
--- NOTE | 2017-05-14 09:12 | PRG ---
DATE OF SERVICE: 05/14/2017 SUBJECTIVE: Ms. Vega is a 61-year-old female with ESRD and being followed up at the [facility] for her maintenance hemodialysis. The patient still has this persistent chest pain. I discussed the case with Dr. Garcia and the plan is for her to undergo a cardiac stress test. I f it is negative, we will consider her for discharge. Otherwise, no other complaints except for the persistent chest pain. However, she denies any diaphoresis or shortness of breath with this. Hollis maza note she received her dialysis. We have done intensive dialysis with her due to her pericardial effusion. PHYSICAL EXAMINATION: VITAL SIGNS: Blood pressure is 154/69, heart rate 56, respiratory rate 18, temperature 99.3, pulse ox 94%. GENERAL: Awake, alert, supine, comfortable, not in distress. SKIN: Adequate turgor. HEENT: Pinkish conjunctivae, anicteric sclerae. NECK: No neck mass, no carotid bruits, no JVD. CHEST: No deformities. LUNGS: Clear breath sounds. No wheezing, no crackles. HEART: Normal sinus rhythm. No murmur, no gallops or rubs. ABDOMEN: Globular, soft, nontender. No masses. EXTREMITIES: No edema. MEDICATIONS: 05/14/2017 - Reviewed. LABORATORY: 05/14/2017 - White count 8.9, hemoglobin 13.6, sodium 133, potassium 3.8, chloride 99, carbon dioxide 24, BUN is 8, creatinine 3.1, glucose 191, calcium 8.7. Cholesterol is 142. ASSESSMENT AND PLAN: 1. Chest pain. We will do a cardiac stress test to rule out any cardiac ischemia. 2. End-stage renal disease, stable. Tolerating current hemodialysis regimen. My plan is to do ano ther dialysis tomorrow. No indication for any dialytic intervention today. 3. Moderate sized pericardial effusion. Intensive dialysis was done the last few days to max out f luid removal with this patient. Overall, I agree with current management.
[2017-05-14] MEDS: Famotidine 20 MG TAB PO SCH (11:07)
[2017-05-14] MEDS: Heparin 5,000 UNITS/ML VIAL SC SCH ×2 (11:07→16:08)
[2017-05-14] MEDS: Fish Oil 1,000 MG CAP PO SCH (11:07)
[2017-05-14] MEDS: Aspirin 81 mg Enteric Coated Tablet PO SCH (11:07)
[2017-05-14] MEDS ORDERED: Regadenoson 0.4 MG/5 ML SYRINGE ONE (12:00)
[2017-05-14] MEDS: Carvedilol 25 MG TAB PO SCH (13:07)
[2017-05-14] MEDS: cloNIDine HCl 0.1 MG TAB PO SCH ×2 (13:07→16:08)
[2017-05-14] MEDS: Losartan Potassium 25 MG TAB PO SCH (13:08)
[2017-05-14] MEDS: Polyethylene Glycol 3350 17 GM Packet PO SCH (13:08)
--- NOTE | 2017-05-14 15:26 | PDOC.PN ---
- Subjective Encounter Start Date: 05/14/17 Encounter Start Time: 10:40 Subjective: no chest pain this morning, feels better - Objective MAR Reviewed: Yes Vital Signs & Weight: Vital Signs (12 hours) Temp Pulse Resp BP Pulse Ox 05/14/17 13:07 52 L 05/14/17 08:00 98.6 F 52 L 18 163/83 H 93 L Weight Admit Weight 175 lb Weight 166 lb 3.657 oz Most Recent Monitor Data Heart Rate from ECG 49 NIBP 162/51 NIBP BP-Mean 116 Respiration from ECG 17 SpO2 97 I&O: 05/13/17 05/14/17 05/15/17 06:59 06:59 06:59 Intake Total 1332 480 Output Total 30 Balance 1302 480 Result Diagrams: 05/14/17 03:45 05/14/17 03:45 Additional Labs: Accuchecks 05/14/17 05/14/17 05/13/17 11:01 04:45 20:00 POC Glucose 146 H 190 H 208 H 05/13/17 16:40 POC Glucose 286 H Phys Exam - Physical Examination HEENT: PERRLA, moist MMs Neck: no JVD, supple Respiratory: no wheezing, no rales Cardiovascular: RRR, no significant murmur Gastrointestinal: soft, non-tender, positive bowel sounds Musculoskeletal: no edema, pulses present Neurological: non-focal, moves all 4 limbs Psychiatric: A&O x 3 Dx/Plan (1) Chest pain Code(s): R07.9 - CHEST PAIN, UNSPECIFIED Status: Resolved Qualifiers: Chest pain type: unspecified Qualified Code(s): R07.9 - Chest pain, unspecified (2) PUD (peptic ulcer disease) Code(s): K27.9 - PEPTIC ULC, SITE UNSP, UNSP AC OR CHR, W/O HEMOR OR PERF Status: Chronic (3) Diabetes mellitus Code(s): E11.9 - TYPE 2 DIABETES MELLITUS WITHOUT COMPLICATIONS Status: Chronic Qualifiers: Diabetes mellitus type: type 2 Diabetes mellitus complication status: with kidney complications Diabetes mellitus complication detail: with chronic kidney disease Diabetes mellitus custodial insulin use: with buttermaker use Chronic kidney disease stage: on chronic dialysis Qualified Code(s): E11.22 - Type 2 diabetes mellitus with diabetic chronic kidney disease; N18.6 - End stage renal disease; Z79.4 - correction (current) use of insulin; Z99.2 - Dependence on renal dialysis (4) ESRD (end stage renal disease) Code(s): N18.6 - END STAGE RENAL DISEASE Status: Chronic (5) Hypertensive emergency Code(s): I16.1 - HYPERTENSIVE EMERGENCY Status: Resolved (6) Hypothyroidism Code(s): E03.9 - HYPOTHYROIDISM, UNSPECIFIED Status: Chronic Qualifiers: Hypothyroidism type: unspecified Qualified Code(s): E03.9 - Hypothyroidism , unspecified - Plan hemostable -: stress test is -ve -: dc pt home * .
--- NOTE | 2017-05-14 16:08 | NM ---
CARDIAC SPECT: 05/14/17 HISTORY: 61-year-old female with chest pain, hypertension, diabetes, dyslipidemia. TECHNIQUE: A stress only myocardial perfusion scan was performed following the intravenous administration of 31 millicuries of technetium 99m Sestamibi. Pharmacologic stress with Lexiscan is monitored and interp reted by Dr. Ramirez. FINDINGS: Homogeneous tracer distribution is seen in the myocardial segments on post stress images. GATED SPECT LVEF: 64%. WALL MOTION EXAM: Normal. IMPRESSION: Normal post stress myocardial perfusion scan. POS: [facility]
--- NOTE | 2017-05-14 20:10 | DIS ---
DATE OF ADMISSION: 05/09/2017 DATE OF DISCHARGE: 05/14/2017 DISCHARGE DISPOSITION: To home. PRIMARY DISCHARGE DIAGNOSES: Chest pain which is noncardiac, peptic ulcer disease, diabetes mellitus type 2, end-stage renal disease on hemodialysis, initial hypertensive emergency, has resolved and hypothyroidism. PROCEDURES DONE DURING HOSPITALIZATION: Abdominal and pelvic CAT scan done on the day of admission showed no acute abnormality in the pelvis or abdomen. CT angio chest done showed no evidence of PE. There was cardiomegaly with bilateral pleural effusions suggestive of volume overload, moderate pericardial effusion was seen. Echo with 2D Doppler done showed an EF of 60-65%. No regional wall motion abnormalities were seen. There was no evidence of any pericardial effusion on the echo as such. Upper endoscopy done on 05/12/[address] Osito Buck showed nonerosive gastritis. Gastric biopsy results show chronic inactive gastritis with an antral type mucosa, negative for H. pylori like organisms. Nuclear stress test done on 05/14/2017 showed no reversible ischemia. Ejection fraction was 64% with normal wall motion. H\T\H 13 and 43, platelet count 191,000, total cholesterol 142, triglycerides 120, LDL 70, HDL 48. DISCHARGE MEDICATIONS: Norvasc 10 mg p.o. daily, aspirin 81 mg p.o. daily, Lipitor 20 mg p.o. daily, Coreg 12.5 mg p.o. twice daily, ferrous sulfate 325 mg p.o. daily, Neurontin 300 mg p.o. 3 times daily, Lantus 20 units subcu q.p.m. , levothyroxine 200 mcg p.o. daily, losartan 100 mg p.o. daily, meclizine p.r.n. , omega 3 fatty acid 1000 mg p.o. daily, Protonix 40 mg p.o. daily, clonidine 0.1 mg p.o. three times daily, Ultram p.r.n. for pain. ALLERGIES: NONSTEROIDAL AGENTS. DISCHARGE PLAN: Patient to follow up with Dr. Rizvi as advised and primary care physician in 1 week. BRIEF COURSE DURING HOSPITALIZATION: The patient initially got admitted on the with complaints of abdominal pain. She had nauseating feeling as well. Patient also mentioned that she is constipated. Multiple imaging studies were done on the day of admission, the results of which I have mentioned above. She also had hypertensive emergency on arrival and had volume overload requiring urgent dialysis. The patient initially was in IMCU and later downgraded to telemetry, then medical floor. Upper endoscopy done showed nonerosive gastritis. Initial CAT scan revealed moderate pericardial effusion, but on the echo there was none. The patient also complained of chest pain after hemodialysis hence, a nuclear stress test was done which showed no reversible ischemia. Her medications for blood pressure were optimized during her stay. All her medications have been faxed to her pharmacy. A total of 35 minutes was spent on discharge plan. Please see face to face documentation on [facility] for the day of discharge. MTDD
== END 2017-05-14 16:09 | disposition home or self-care (01) | DRG 304 ==
LOC: ERS 18:24 → CCU 22:20 → T4-A 05-12 16:36
PROVIDERS: ADMIT Internal Medicine; ATTEND Internal Medicine
PROC: 5A1D60Z (ICD-10-PCS; 2017-05-09)
PROC: 0DB68ZX Excision of Stomach, Via Natural or Artificial Opening Endoscopic, Diagnostic (ICD-10-PCS; principal; 2017-05-12)
DX: I16.0 Hypertensive urgency (principal); N18.6 End stage renal disease; I31.3 Pericardial effusion (noninflammatory); I82.890 Acute embolism and thrombosis of other specified veins; E11.22 Type 2 diabetes mellitus with diabetic chronic kidney disease; I12.0 Hypertensive chronic kidney disease with stage 5 chronic kidney disease or end stage renal disease; Z99.2 Dependence on renal dialysis; E78.5 Hyperlipidemia, unspecified; K29.70 Gastritis, unspecified, without bleeding; K59.09 Other constipation; D63.1 Anemia in chronic kidney disease; R07.89 Other chest pain; Z79.82 Long term (current) use of aspirin; Z79.4 Long term (current) use of insulin; F41.9 Anxiety disorder, unspecified; K27.7 Chronic peptic ulcer, site unspecified, without hemorrhage or perforation; E03.9 Hypothyroidism, unspecified
CPT/HCPCS: 36415; 36416; 71275; 74177; 78452; 80048; 80053; 80061; 80069; 81003; 81015; 82553; 83690; 83735; 84484; 85025; 85610; 85730; 87340; 88305; 88312; 90935; 93017; 93306; 94760; 96365; 96375; 96376; A4216; A9500; G0257; J0696; J1644; J1815; J2270; J2405; J2704; J2785; J7050

== ENCOUNTER 2017-12-18 14:22 | Emergency (ER) | payer BC ==
[2017-12-18] MEDS ORDERED: Mag-Al 1200 mg/1200 mg/30 ML UDCUP ONE (15:30)
[2017-12-18] MEDS ORDERED: Lidocaine Viscous Sol 2% 15 ml UD Cup ONE (15:30)
[2017-12-18 15:44] LABS: #Lymphocytes 1.3 thou/uL (1.20-3.40); #Monocytes 0.3 thou/uL (0.11-0.59); %Eosinophils 0.7 % (0.0-10.0); %Lymphocytes 19.5 % (21.0-51.0); %Monocytes 4.9 % (0.0-10.0); %Neutrophils 74.9 % (42.0-75.0); Hemoglobin 13.1 g/dL (12.0-16.0); Mean Corpuscular HGB CONC 33.6 g/dL (32.0-36.0); Mean Corpuscular Hemoglobin 30.4 pg (27.0-31.0); Mean Corpuscular Volume 90.4 fl (81.0-99.0); Mean Platelet Volume 7.5 fL (7.4-10.4); Platelet Count 219 thou/uL (130-400); RBC Distribution Width 15.4 % (11.5-14.5); Red Blood Cell (RBC) Count 4.32 mill/uL (4.20-5.40); White Blood Cell (WBC) Count 6.7 thou/uL (4.8-10.8)
--- NOTE | 2017-12-18 15:53 | RAD ---
PORTABLE CHEST: 12/18/17 HISTORY: Abdominal pain. Comparison made to films from April 2015. FINDINGS/IMPRESSION: Cardiomegaly is again noted, slightly more prominent today. Lungs appear well aerated. There is mild vascular engorgement. Both CP angles are obscured on this portable projection. Findings suggest small effusions and mild bibasilar atelectasis. POS: [facility]
--- NOTE | 2017-12-18 15:55 | RAD ---
RIGHT FOOT: 12/18/17 Three views. HISTORY: Injury to right foot with pain. FINDINGS: Enthesophytes from the posterior calcaneus. Mild degenerative changes at the intertarsal joints and t arsometatarsal joints. Degenerative change at the first MTP joint. No fracture. No lytic or destructi ve process identified. There is mild osteopenia. IMPRESSION: No evidence of acute process. POS: [facility]
[2017-12-18 16:08] LABS: ALT (SGPT) 13 U/L (8-55); AST (SGOT) 15 U/L (5-34); Alkaline Phosphatase 121 U/L (40-150); Anion Gap 12 mmol/L (10-20); BUN (Urea Nitrogen) 5 mg/dL (9.8-20.1); Bilirubin, Total 0.6 mg/dL (0.2-1.2); CRP (Inflammatory) 1.52 mg/dL (= or < 0.5); Calc. Creatinine Clearance 0 mL/min (70-130); Calcium 8.5 mg/dL (7.8-10.44); Carbon Dioxide 29 mmol/L (23-31); Chloride 97 mmol/L (98-107); Estimated GFR-MDRD 35; Globulin 4.6 g/dL (2.4-3.5); Glucose 116 mg/dL (80-115); Protein, Total 7.6 g/dL (6.0-8.3); Sodium 135 mmol/L (136-145)
--- NOTE | 2017-12-18 16:10 | CT ---
ABDOMEN AND PELVIC CT SCAN WITHOUT IV CONTRAST: 12/18/17 HISTORY: 62-year-old female with history of abdominal pain. Bilateral pleural effusions, moderate on the right and small on the left side with bibasilar parenchy mal changes also slightly worse on the right side, evidence for some basilar atelectasis and/or pneum onitis. Minimal pericardial fluid. Status post cholecystectomy. The visualized liver, pancreas, sple en, and adrenal glands are unremarkable. No renal calculus or acute obstruction. Small fat contain ing umbilical hernia. Atherosclerosis of the aorta. Upper range of normal sized uterus with calcific changes throughout with some nodularity probably related to some uterine fibroids. 1.4 cm diameter le ft ovarian follicle cyst. Trace cul-de-sac fluid. No evidence of overt large or small bowel obstructi on, abscess, adenopathy, or abnormal fluid collection. Normal appearing appendix. IMPRESSION: No significant acute process in the abdomen or pelvis. Small pleural effusions, greater on the right side and bilateral lower lobe atelectasis with probable minimal pericardial fluid. Probable uterine f ibroids. 1.4 cm diameter left ovarian probable follicle cyst. Trace cul-de-sac fluid. No other signif icant abnormality. POS: [facility]
== END 2017-12-18 16:46 | disposition home or self-care (01) ==
LOC: ERS 14:22
DX: K21.9 Gastro-esophageal reflux disease without esophagitis (principal); E11.9 Type 2 diabetes mellitus without complications; E78.5 Hyperlipidemia, unspecified; I10 Essential (primary) hypertension
CPT/HCPCS: 36415; 71045; 74176; 80053; 83605; 83690; 85025; 86140; 93005